=== PATIENT | female | born 1990 | race Two or more races ===

== ENCOUNTER 2018-07-10 01:14 | Emergency (ER) | payer SELFPAY ==
--- NOTE | 2018-07-10 01:22 | PDOC ---
History of Present Illness - General Chief Complaint: Vaginal Bleeding Stated Complaint: VAG BLEED DURING Time Seen by Provider: 07/10/18 01:17 EDT - History of Present Illness Initial Comments: This 28 year old woman she , LMP in mid April and very light period in May presents with vaginal bleeding for the last 5 days.Patient had tested positive for with a urine test at home approximately 6 weeks ago. Bleeding has been accompanied by intermittent cramping lower abdominal pain.No fever/chills/vomiting There has been some clot passage but no evidence of tissue in the vaginal blood. Although the patient has a deputy head, she has not yet seen her for this . 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 She has 4 living children the oldest 11 years and the youngest , 2 years. Past History - Past Medical History Allergies/Adverse Reactions: Allergies Allergy/AdvReac Type Severity Reaction Status Date / Time No Known Allergies Allergy Unverified 07/10/18 01:49 EDT Home Medications: Ambulatory Orders NK [No Known Home Medication] 07/10/18 Review of Systems - Review of Systems Able to Perform ROS?: Yes Comments:: 12 point review of systems is negative except for what is noted in the history of present illness *Physical Exam - Physical Exam Comments: GENERAL: Adult female, alert and oriented 3, in no acute distress HEAD: Normal with no signs of trauma. EYES: PERRLA, EOMI, sclera anicteric, conjunctiva clear. ENT: Ears normal, nares patent, oropharynx clear without exudates. Dry mucous membranes. NECK: Normal range of motion, supple without lymphadenopathy, JVD, or masses. LUNGS: Breath sounds equal, clear to auscultation bilaterally. No wheezes, and no crackles. HEART:Regular rate and rhythm, normal S1 and S2 without murmur, rub or gallop. ABDOMEN:.normal bowel sounds moderate suprapubic tenderness No guarding or rebound.No masses No distention. EXTREMITIES: Normal range of motion, no edema. No clubbing or cyanosis. No erythema, or tenderness. NEUROLOGICAL: Cranial nerves II through XII grossly intact. Normal speech. No focal neurological deficits. MUSCULOSKELETAL: Back non-tender to palpation, no CVA tenderness SKIN: Warm, Dry, normal turgor, no rashes or lesions noted. ED Treatment Course - LABORATORY CBC & Chemistry Diagram: 07/10/18 01:45 EST Progress Note - Progress Note Progress Note: less than 14 weeks ultrasound performed to rule out ectopic . Ultrasound reveals intrauterine with pole measuring out approximately 8 weeks/2 days gestational age. Numerous attempts at measuring heart rate were unsuccessful. Clinical presentation most consistent with demise. Results discussed with the patient and her fianc. Patient had earlier indicated that she had been strongly considering elective termination of this Patient has been advised to return to the emergency room if she has severe pain/very heavy flow/fever. Meanwhile, she should plan to follow up with her deputy head in the next 2-3 days. *DC/Admit/Observation/Transfer Diagnosis at time of Disposition: Miscarriage - Discharge Dispostion Disposition: HOME Condition at time of disposition: Stable - Referrals - Patient Instructions Printed Discharge Instructions: Miscarriage Additional Instructions: Follow-up with your deputy head within the next 2-3 days as discussed Return to ER if you have severe pain/heavy bleeding/fever or you have lightheadedness - Post Discharge Activity Forms/Work/School Notes: Back to Work
[2018-07-10 01:49] VITALS: BP 115/79; PULSE 79; TEMP 97.9; BMI 27.3
[2018-07-10 01:58] LABS: HEMATOCRIT 38.6 % (32.4-45.2); HEMOGLOBIN 13.2 GM/dL (10.7-15.3); MCH 29.2 pg (25.7-33.7); MCHC 34.2 g/dl (32.0-36.0); MEAN CELL VOLUME 85.5 fl (80-96); MEAN PLT VOLUME 9.7 fl (7.5-11.1); PLATELET COUNT 309 K/MM3 (134-434); RBC 4.51 M/mm3 (3.60-5.2); RDW 14.6 % (11.6-15.6); WHITE BLOOD COUNT 8.7 K/mm3 (4.0-10.0)
== END 2018-07-10 03:08 | disposition home or self-care (01) ==
LOC: FER 01:14
DX: O03.9 Complete or unspecified spontaneous abortion without complication (principal)
CPT/HCPCS: 36415; 76801-TC; 84702; 85027; 86850; 86900; 86901; 99282-25